=== PATIENT | female | born 1950 | race Caucasian/White ===

== ENCOUNTER → 2016-08-17 | Outpatient (CLI) | payer BC, OTHER ==
[~2016-08-17] VITALS: Ht 157.5 cm; Wt 81.6 kg
[~2016-08-17] MED LIST: ALPR0.25 PO; CALC600T7 PO; CELE-19 PO; CRAN250C2 PO; CRANCAP10 PO; ESTRA; ESTROBLEND PO; GLUCPOW24 PO; LIDOCAINE 2% INJ 100 MG/5 ML SDV (FOR ANES.) As Ordered ONE; MULTTAB24 PO; NS 1,000 ML IV ONE; OMEP40CA2 PO; ONE-TAB33 PO; POTA595T8 PO; PROPOFOL 200 MG/20 ML VIAL As Ordered ONE; TYLE167L PO; TYLE650T25 PO; VITA1CHW12 PO; [UNRECOGNIZED DRUG - OTHER] PO
--- NOTE | 2016-08-17 12:18 | ROOR ---
Patient Name: Sofia Hyde Procedure Date: 08/17/2016 12:08 PM Date of : 1950 Age: 65 Room: [facility] Gender: Female Note Status: Finalized Procedure: Upper Endoscopy + Biopsies Indications: Heartburn Providers: Gonzalo Hyde MD Referring MD: Jessica Sanches MD Requesting Provider: Medicines: Monitored Anesthesia Care Complications: No immediate complications. Procedure: Pre-Anesthesia Assessment: - The heart rate, respiratory rate, oxygen saturations, blood pressure, adequacy of pulmonary ventilation, and response to care were monitored throughout the procedure. The Endoscope was introduced through the mouth, and advanced to the second part of duodenum. The upper GI endoscopy was accomplished without difficulty. The patient tolerated the procedure well. Findings: The Z-line was regular and was found 30 cm from the incisors. Multiple biopsies were obtained with cold forceps for evaluation to rule out Myrick's Esophagus randomly at 30 cm from the incisors and at the gastroesophageal junction. A small hiatal hernia was present. No other significant abnormalities were identified in a careful examination of the stomach. The exam of the duodenum was otherwise normal. Impression: - Z-line regular, 30 cm from the incisors. - Small hiatal hernia. - Multiple biopsies were obtained at 30 cm from the incisors and at the gastroesophageal junction. Recommendation: - Discharge patient to home. - Follow an antireflux regimen. - Continue present medications. - Await pathology results. - Telephone GI clinic for pathology results in 1 week. - Check Portal Online for Path Results.([email or web address] - Return to referring physician. - The findings and recommendations were discussed with the patient's family. Gonzalo Hyde MD Gonzalo Hyde MD 08/17/2016 12:18:07 PM This report has been signed electronically. Number of Addenda: 0 Note Initiated On: 08/17/2016 12:08 PM Estimated Blood Loss: Estimated blood loss: none.
[2016-08-17 12:35] VITALS: BP 133/84
== END | disposition home or self-care (01) ==
LOC: M OPP 11:33
PROVIDERS: ATTEND Internal Medicine Gastroenterology
DX: K20.9 Esophagitis, unspecified (principal); K44.9 Diaphragmatic hernia without obstruction or gangrene; K62.5 Hemorrhage of anus and rectum; M19.90 Unspecified osteoarthritis, unspecified site; R06.83 Snoring; Z87.891 Personal history of nicotine dependence; Z96.9 Presence of functional implant, unspecified; Z79.899 Other long term (current) drug therapy; Z91.040 Latex allergy status; Z88.8 Allergy status to other drugs, medicaments and biological substances; Z88.2 Allergy status to sulfonamides; Z91.048 Other nonmedicinal substance allergy status

== ENCOUNTER → 2021-03-17 | Outpatient (CLI) | payer BC, OTHER ==
[~2021-03-17] MED LIST changes: +CALC-212 PO; -CALC600T7 PO; -CELE-19 PO; +CELE1CAP4 PO; -LIDOCAINE 2% INJ 100 MG/5 ML SDV (FOR ANES.) As Ordered ONE; -NS 1,000 ML IV ONE; -OMEP40CA2 PO; +OMEP40CA4 PO; -PROPOFOL 200 MG/20 ML VIAL As Ordered ONE
--- NOTE | 2021-03-17 11:57 | REP ---
INDICATION: SCREEING MAMMO. COMPARISON: Multiple the latest 11/21/2019 TECHNIQUE: Digital screening mammography was carried out bilaterally in the CC and MLO projections using both 2D and 3D modalities and compared to the prior exams. By history, the patient has no complaints of a palpable breast abnormality or other significant breast complaints. FINDINGS: The breasts are unchanged in size and shape. There are no josep soft tissue densities or spiculated masses. There is no internal architectural distortion. In the left breast upper outer quadrant there is a new grouping of calcifications. No other suspicious features are seen in either breast. The Volpara volumetric breast density pattern is b. IMPRESSION: BIRADS/ACR category 0 mammogram. There is a new grouping of calcifications in the left breast, as described above, for which diagnostic digital magnified spot compression views are recommended in the CC and true lateral projections. This patient's Tyrer-Cuzick lifetime breast cancer risk assessment score is 3.9%. This mammogram was interpreted with the aid of an FDA-approved computer-aided detection system. The patient states she had a clinical breast exam in over a year. The patient letter being requested is M0. RECOMMENDATION: As above <Electronically signed by Donnie Mccarthy > 03/17/21 [id number]
== END ==
LOC: M WHC 10:48
PROVIDERS: ATTEND Nurse Practitioner Family
DX: Z12.31 Encounter for screening mammogram for malignant neoplasm of breast (principal)

== ENCOUNTER → 2021-04-21 | Outpatient (CLI) | payer MEDICARE, BC, OTHER ==
[~2021-04-21] MED LIST changes: +ACET325C5 PO; +BENA25CA4 PO; +CETI10CA2 PO
[2021-04-21 11:50] VITALS: BP 114/66
== END ==
LOC: M WHCPRO 09:51
PROVIDERS: ATTEND Surgery
DX: N60.22 Fibroadenosis of left breast (principal)

== ENCOUNTER → 2021-10-18 | Outpatient (CLI) | payer MEDICARE, BC, OTHER | LOC: M WHC 12:38 | PROVIDERS: ATTEND Surgery | DX: R92.8 Other abnormal and inconclusive findings on diagnostic imaging of breast (principal) | CPT/HCPCS: 77065; G0279 ==

== ENCOUNTER → 2022-01-13 | Outpatient (CLI) | payer MEDICARE, BC, OTHER ==
[2022-01-13 15:25] LABS: ALBUMIN 3.9 GM/DL (3.2-5.2); ALT/SGPT 26 U/L (12-78); BILIRUBIN,TOTAL 0.4 MG/DL (0.2-1.0); BLOOD UREA NITROGEN 16 MG/DL (7-18); CARBON DIOXIDE LEVEL 30 MEQ/L (21-32); CHLORIDE LEVEL 105 MEQ/L (98-107); CHOLESTEROL LEVEL 228 MG/DL (<200); CHOLESTEROL RISK RATIO 3.507 (<5); CREATININE FOR GFR 0.78 MG/DL (0.55-1.30); GLOMERULAR FILTRATION RATE > 60.0 (>45); GLUCOSE, FASTING 103 MG/DL (70-100); HDL CHOLESTEROL 65 MG/DL (>40); LDL CHOLESTEROL 132 MG/DL (<100); NON-HDL-C 163 MG/DL; POTASSIUM SERUM 4.6 MEQ/L (3.5-5.1); SODIUM LEVEL 139 MEQ/L (136-145); TOTAL PROTEIN 7.8 GM/DL (6.4-8.2); TRIGLYCERIDES LEVEL 154 MG/DL (<150)
== END ==
LOC: M PLALAB 09:48
PROVIDERS: ATTEND Nurse Practitioner Family
DX: E78.2 Mixed hyperlipidemia (principal)

== ENCOUNTER → 2022-03-18 | Outpatient (CLI) | payer MEDICARE, BC, OTHER | LOC: M WHC 12:16 | PROVIDERS: ATTEND Nurse Practitioner Family | DX: Z12.31 Encounter for screening mammogram for malignant neoplasm of breast (principal); M81.0 Age-related osteoporosis without current pathological fracture ==

== ENCOUNTER 2022-07-23 02:15 | Observation (INO) | payer MEDICARE, BC, OTHER ==
[~2022-07-23] VITALS: Ht 160 cm; Wt 80.6 kg
[2022-07-23] MEDS ORDERED: KETOROLAC 60MG 2ML VIAL IM ONE (04:35)
[2022-07-23] MEDS ORDERED: diazePAM 10MG/2ML SYRINGE IV ONE (04:50)
[2022-07-23 05:20] LABS: BASO % 0.3 % (0.0-1.0); EOS % 0.3 % (0.0-3.0); HEMATOCRIT 40.6 % (36.0-47.0); LYMPH # 1.5 10^3/uL (1.5-5.0); LYMPH % 13.3 % (24.0-44.0); MEAN CORPUSCULAR HEMOGLOBIN 32.6 pg (27.0-33.0); MEAN CORPUSCULAR HGB CONC 34.5 g/dl (32.0-36.5); MEAN CORPUSCULAR VOLUME 94.4 fl (80.0-96.0); MONO # 0.5 10^3/uL (0.0-0.8); MONO % 4.5 % (2.0-8.0); NEUTROPHILS # 9.2 10^3/uL (1.5-8.5); NEUTROPHILS % 81.3 % (36.0-66.0); PLATELET COUNT, AUTOMATED 356 10^3/uL (150-450); WHITE BLOOD COUNT 11.3 10^3/uL (4.0-10.0)
[2022-07-23 05:44] LABS: ALBUMIN 3.8 G/DL (3.2-5.2); ALKALINE PHOSPHATASE 106 U/L (46-116); ALT/SGPT 23 U/L (7.0-40); AST/SGOT 27 U/L (<34); BILIRUBIN,TOTAL 0.8 MG/DL (0.3-1.2); BLOOD UREA NITROGEN 13 MG/DL (9-23); CALCIUM LEVEL 9.6 MG/DL (8.3-10.6); CARBON DIOXIDE LEVEL 24 MMOL/L (20-31); CHLORIDE LEVEL 104 MMOL/L (98-107); CREATININE FOR GFR 0.66 MG/DL (0.55-1.30); GLOMERULAR FILTRATION RATE > 60.0 (>45); GLUCOSE, FASTING 106 MG/DL (74-106); POTASSIUM SERUM 4.2 MMOL/L (3.5-5.1); SODIUM LEVEL 137 MMOL/L (136-145); TOTAL PROTEIN 6.8 G/DL (5.7-8.2)
[2022-07-23 05:51] LABS: RSV AMPLIFICATION NEGATIVE (NEGATIVE)
[2022-07-23] MEDS ORDERED: HOME MED LIST COMPLETE! XX SCH (08:20)
[2022-07-23] MEDS ORDERED: ACETAMINOPHEN TAB 650MG DOSE (2X325MG) PO PRN (09:05)
[2022-07-23] MEDS ORDERED: LORazepam 2 MG TAB PO PRN (09:15)
[2022-07-23] MEDS ORDERED: PERCOCET 5MG/325MG TAB PO PRN (09:15)
[2022-07-23] MEDS: FOLIC ACID 1MG TAB PO SCH (10:20)
[2022-07-23] MEDS: CYCLOBENZAPRINE 5MG TABLET PO SCH ×2 (10:20→17:12)
[2022-07-23] MEDS: MULTIVITAMINS/MINERALS THERAP 1 TAB PO SCH (10:20)
[2022-07-23] MEDS: THIAMINE 100 MG TAB PO SCH ×2 (10:21→20:44)
[2022-07-23] MEDS: PERCOCET 5MG/325MG TAB PO PRN (10:21)
[2022-07-23] MEDS: ENOXAPARIN 40MG/0.4ML SYRINGE (J1650 PER 10MG) SC SCH (10:21)
[2022-07-23] MEDS: OMEPRAZOLE 20MG CAP PO SCH (10:21)
[2022-07-23 15:15] VITALS: BP 116/59
[2022-07-23] MEDS ORDERED: MORPHINE 2 MG/ML 1ML VIAL IV ONE (18:50)
[2022-07-23 22:00] VITALS: BP 131/82
[2022-07-23 22:34] VITALS: BP 124/89
[2022-07-23 22:36] VITALS: BP 124/89
[2022-07-24] MEDS: CYCLOBENZAPRINE 5MG TABLET PO SCH ×3 (00:13→16:05)
[2022-07-24 06:00] VITALS: BP 109/57
[2022-07-24 06:04] VITALS: BP 109/57
[2022-07-24] MEDS: PERCOCET 5MG/325MG TAB PO PRN ×3 (06:15→22:08)
[2022-07-24] MEDS: THIAMINE 100 MG TAB PO SCH ×2 (08:20→21:30)
[2022-07-24] MEDS: MULTIVITAMINS/MINERALS THERAP 1 TAB PO SCH (08:20)
[2022-07-24] MEDS: OMEPRAZOLE 20MG CAP PO SCH (08:20)
[2022-07-24] MEDS: FOLIC ACID 1MG TAB PO SCH (08:20)
[2022-07-24] MEDS: ENOXAPARIN 40MG/0.4ML SYRINGE (J1650 PER 10MG) SC SCH (08:21)
[2022-07-24 14:00] VITALS: BP 131/64
[2022-07-24 22:00] VITALS: BP 112/62
[2022-07-25] MEDS: PERCOCET 5MG/325MG TAB PO PRN ×2 (02:10→09:41)
[2022-07-25 06:13] LABS: BASO % 0.4 % (0.0-1.0); EOS # 0.4 10^3/uL (0.0-0.5); EOS % 5.1 % (0.0-3.0); HEMATOCRIT 36.6 % (36.0-47.0); HEMOGLOBIN 12.1 g/dl (12.0-15.5); LYMPH # 1.9 10^3/uL (1.5-5.0); LYMPH % 26.4 % (24.0-44.0); MEAN CORPUSCULAR HEMOGLOBIN 32.5 pg (27.0-33.0); MEAN CORPUSCULAR HGB CONC 33.1 g/dl (32.0-36.5); MEAN CORPUSCULAR VOLUME 98.4 fl (80.0-96.0); MONO # 0.6 10^3/uL (0.0-0.8); MONO % 8.4 % (2.0-8.0); NEUTROPHILS # 4.3 10^3/uL (1.5-8.5); NEUTROPHILS % 59.4 % (36.0-66.0); PLATELET COUNT, AUTOMATED 296 10^3/uL (150-450); RED BLOOD COUNT 3.72 10^6/uL (4.00-5.40); WHITE BLOOD COUNT 7.2 10^3/uL (4.0-10.0)
[2022-07-25 06:33] LABS: BLOOD UREA NITROGEN 13 MG/DL (9-23); CALCIUM LEVEL 8.6 MG/DL (8.3-10.6); CARBON DIOXIDE LEVEL 28 MMOL/L (20-31); CHLORIDE LEVEL 106 MMOL/L (98-107); GLOMERULAR FILTRATION RATE > 60.0 (>45); GLUCOSE, FASTING 98 MG/DL (74-106); POTASSIUM SERUM 4.3 MMOL/L (3.5-5.1); SODIUM LEVEL 139 MMOL/L (136-145)
[2022-07-25] MEDS: CYCLOBENZAPRINE 5MG TABLET PO SCH ×3 (06:37→16:07)
[2022-07-25 06:52] VITALS: BP 117/59
[2022-07-25] MEDS ORDERED: MIRALAX *UNIT DOSE* 17GM PACKET PO SCH (09:00)
[2022-07-25] MEDS: MULTIVITAMINS/MINERALS THERAP 1 TAB PO SCH (09:40)
[2022-07-25] MEDS: OMEPRAZOLE 20MG CAP PO SCH (09:40)
[2022-07-25] MEDS: FOLIC ACID 1MG TAB PO SCH (09:40)
[2022-07-25] MEDS: THIAMINE 100 MG TAB PO SCH (09:40)
[2022-07-25] MEDS: ENOXAPARIN 40MG/0.4ML SYRINGE (J1650 PER 10MG) SC SCH (09:41)
[2022-07-25] MEDS ORDERED: BISACODYL 10MG SUPP PR ONE (13:00)
[2022-07-25] MEDS ORDERED: LACTULOSE 20GM/30ML SYRUP UDC PO ONE (13:15)
[2022-07-25] MEDS ORDERED: SENNA 8.6 MG TAB (SENOKOT) PO ONE (13:15)
[2022-07-25 14:00] VITALS: BP 135/85
== END 2022-07-25 16:25 ==
LOC: EDBD 02:15 → M ED 02:15 → M ED INP 02:16 → ENRESERV 13:18 → M MS5PR 16:20
PROVIDERS: ADMIT Internal Medicine; ATTEND Internal Medicine
DX: M25.551 Pain in right hip (principal); R10.30 Lower abdominal pain, unspecified; M62.838 Other muscle spasm; W01.0XXA Fall on same level from slipping, tripping and stumbling without subsequent striking against object, initial encounter; Y92.090 Kitchen in other non-institutional residence as the place of occurrence of the external cause; Y93.01 Activity, walking, marching and hiking; M19.90 Unspecified osteoarthritis, unspecified site; F10.20 Alcohol dependence, uncomplicated; Z96.643 Presence of artificial hip joint, bilateral; R26.2 Difficulty in walking, not elsewhere classified; K21.9 Gastro-esophageal reflux disease without esophagitis; Z79.899 Other long term (current) drug therapy; Z88.2 Allergy status to sulfonamides; Z88.8 Allergy status to other drugs, medicaments and biological substances; Z91.040 Latex allergy status; Z91.048 Other nonmedicinal substance allergy status; Z87.891 Personal history of nicotine dependence

== ENCOUNTER 2022-07-25 14:17 | Inpatient (IN) | payer MEDICARE, BC, OTHER ==
[~2022-07-25] VITALS: Ht 160 cm; Wt 78.7 kg
[2022-07-25] MEDS ORDERED: BISACODYL 10MG SUPP PR PRN (15:15)
[2022-07-25 16:30] VITALS: BP 110/64
[2022-07-25 20:00] VITALS: BP 118/66
[2022-07-25] MEDS: THIAMINE 100 MG TAB PO SCH (20:30)
[2022-07-25] MEDS: GABAPENTIN 100 MG CAP PO SCH (20:30)
[2022-07-25] MEDS: ACETAMINOPHEN 500 MG TAB PO SCH (20:31)
[2022-07-25] MEDS: oxyCODONE 5MG TAB PO PRN (20:32)
[2022-07-25] MEDS: SENNA 8.6 MG TAB (SENOKOT) PO SCH (20:32)
[2022-07-25] MEDS: DOCUSATE SODIUM 100MG CAPSULE PO SCH (20:33)
[2022-07-26] MEDS: CYCLOBENZAPRINE 5MG TABLET PO PRN ×3 (02:31→20:53)
[2022-07-26 05:42] LABS: BASO # 0.1 10^3/uL (0.0-0.2); BASO % 0.8 % (0.0-1.0); EOS # 0.3 10^3/uL (0.0-0.5); EOS % 5.2 % (0.0-3.0); HEMATOCRIT 35.5 % (36.0-47.0); HEMOGLOBIN 11.9 g/dl (12.0-15.5); LYMPH # 1.8 10^3/uL (1.5-5.0); LYMPH % 28.6 % (24.0-44.0); MEAN CORPUSCULAR HEMOGLOBIN 32.8 pg (27.0-33.0); MEAN CORPUSCULAR HGB CONC 33.5 g/dl (32.0-36.5); MEAN CORPUSCULAR VOLUME 97.8 fl (80.0-96.0); MONO # 0.5 10^3/uL (0.0-0.8); MONO % 8.3 % (2.0-8.0); NEUTROPHILS # 3.6 10^3/uL (1.5-8.5); NEUTROPHILS % 56.6 % (36.0-66.0); PLATELET COUNT, AUTOMATED 274 10^3/uL (150-450); RED BLOOD COUNT 3.63 10^6/uL (4.00-5.40); WHITE BLOOD COUNT 6.4 10^3/uL (4.0-10.0)
[2022-07-26 06:00] VITALS: BP 118/56
[2022-07-26 06:08] LABS: ALBUMIN 2.9 G/DL (3.2-5.2); ALKALINE PHOSPHATASE 88 U/L (46-116); ALT/SGPT 27 U/L (7.0-40); AST/SGOT 30 U/L (<34); BILIRUBIN,TOTAL 0.4 MG/DL (0.3-1.2); BLOOD UREA NITROGEN 15 MG/DL (9-23); CALCIUM LEVEL 8.6 MG/DL (8.3-10.6); CARBON DIOXIDE LEVEL 26 MMOL/L (20-31); CHLORIDE LEVEL 107 MMOL/L (98-107); CREATININE FOR GFR 0.66 MG/DL (0.55-1.30); GLOMERULAR FILTRATION RATE > 60.0 (>45); GLUCOSE, FASTING 94 MG/DL (74-106); POTASSIUM SERUM 4.3 MMOL/L (3.5-5.1); SODIUM LEVEL 140 MMOL/L (136-145); TOTAL PROTEIN 5.5 G/DL (5.7-8.2)
[2022-07-26] MEDS: THIAMINE 100 MG TAB PO SCH ×2 (08:47→20:51)
[2022-07-26] MEDS: PANTOPRAZOLE 40MG TAB (PROTONIX) PO SCH (08:47)
[2022-07-26] MEDS: FOLIC ACID 1MG TAB PO SCH (08:47)
[2022-07-26] MEDS: GABAPENTIN 100 MG CAP PO SCH ×3 (08:47→20:52)
[2022-07-26] MEDS: MULTIVITAMINS/MINERALS THERAP 1 TAB PO SCH (08:47)
[2022-07-26] MEDS: MIRALAX *UNIT DOSE* 17GM PACKET PO SCH (08:49)
[2022-07-26] MEDS: ACETAMINOPHEN 500 MG TAB PO SCH ×3 (08:49→20:54)
[2022-07-26] MEDS: DOCUSATE SODIUM 100MG CAPSULE PO SCH ×2 (08:49→20:51)
[2022-07-26] MEDS: ENOXAPARIN 40MG/0.4ML SYRINGE (J1650 PER 10MG) SC SCH (08:49)
[2022-07-26] MEDS: oxyCODONE 5MG TAB PO PRN ×2 (12:43→20:53)
[2022-07-26 14:00] VITALS: BP 115/60
[2022-07-26 20:00] VITALS: BP 116/58
[2022-07-26] MEDS: SENNA 8.6 MG TAB (SENOKOT) PO SCH (20:51)
[2022-07-27 06:00] VITALS: BP 126/61
[2022-07-27] MEDS: GABAPENTIN 100 MG CAP PO SCH ×3 (08:16→21:33)
[2022-07-27] MEDS: FOLIC ACID 1MG TAB PO SCH (08:16)
[2022-07-27] MEDS: PANTOPRAZOLE 40MG TAB (PROTONIX) PO SCH (08:16)
[2022-07-27] MEDS: MULTIVITAMINS/MINERALS THERAP 1 TAB PO SCH (08:16)
[2022-07-27] MEDS: THIAMINE 100 MG TAB PO SCH ×2 (08:17→21:32)
[2022-07-27] MEDS: ACETAMINOPHEN 500 MG TAB PO SCH ×3 (08:17→21:34)
[2022-07-27] MEDS: ENOXAPARIN 40MG/0.4ML SYRINGE (J1650 PER 10MG) SC SCH (08:18)
[2022-07-27] MEDS: CYCLOBENZAPRINE 5MG TABLET PO PRN ×2 (08:21→16:30)
[2022-07-27] MEDS: oxyCODONE 5MG TAB PO PRN ×3 (08:22→21:34)
[2022-07-27] MEDS: DOCUSATE SODIUM 100MG CAPSULE PO SCH ×2 (09:00→21:32)
[2022-07-27] MEDS: MIRALAX *UNIT DOSE* 17GM PACKET PO SCH (09:00)
[2022-07-27 11:00] LABS: BASO # 0.1 10^3/uL (0.0-0.2); BASO % 0.6 % (0.0-1.0); EOS # 0.3 10^3/uL (0.0-0.5); EOS % 3.7 % (0.0-3.0); HEMATOCRIT 39.9 % (36.0-47.0); HEMOGLOBIN 13.2 g/dl (12.0-15.5); LYMPH # 1.7 10^3/uL (1.5-5.0); LYMPH % 20.1 % (24.0-44.0); MEAN CORPUSCULAR HEMOGLOBIN 32.5 pg (27.0-33.0); MEAN CORPUSCULAR HGB CONC 33.1 g/dl (32.0-36.5); MEAN CORPUSCULAR VOLUME 98.3 fl (80.0-96.0); MONO # 0.5 10^3/uL (0.0-0.8); MONO % 5.8 % (2.0-8.0); NEUTROPHILS # 5.9 10^3/uL (1.5-8.5); NEUTROPHILS % 69.4 % (36.0-66.0); PLATELET COUNT, AUTOMATED 352 10^3/uL (150-450); RED BLOOD COUNT 4.06 10^6/uL (4.00-5.40); WHITE BLOOD COUNT 8.5 10^3/uL (4.0-10.0)
[2022-07-27] MEDS: CETIRIZINE (ZyrTEC) 10 MG TAB PO SCH (11:00)
[2022-07-27 11:36] LABS: BLOOD UREA NITROGEN 14 MG/DL (9-23); CALCIUM LEVEL 8.9 MG/DL (8.3-10.6); CARBON DIOXIDE LEVEL 29 MMOL/L (20-31); CHLORIDE LEVEL 105 MMOL/L (98-107); CREATININE FOR GFR 0.64 MG/DL (0.55-1.30); GLOMERULAR FILTRATION RATE > 60.0 (>45); GLUCOSE, FASTING 107 MG/DL (74-106); POTASSIUM SERUM 4.4 MMOL/L (3.5-5.1); SODIUM LEVEL 139 MMOL/L (136-145)
[2022-07-27] MEDS: ANUSOL HC CREAM 30GM TOP SCH ×2 (12:08→21:34)
[2022-07-27 14:04] VITALS: BP 124/76
[2022-07-27 20:00] VITALS: BP 137/73
[2022-07-27] MEDS: SENNA 8.6 MG TAB (SENOKOT) PO SCH (21:32)
[2022-07-28] MEDS: oxyCODONE 5MG TAB PO PRN ×4 (03:21→21:53)
[2022-07-28 06:02] VITALS: BP 114/54
[2022-07-28] MEDS: FOLIC ACID 1MG TAB PO SCH (08:04)
[2022-07-28] MEDS: DOCUSATE SODIUM 100MG CAPSULE PO SCH ×2 (08:05→21:51)
[2022-07-28] MEDS: PANTOPRAZOLE 40MG TAB (PROTONIX) PO SCH (08:05)
[2022-07-28] MEDS: MULTIVITAMINS/MINERALS THERAP 1 TAB PO SCH (08:05)
[2022-07-28] MEDS: ACETAMINOPHEN 500 MG TAB PO SCH ×3 (08:05→21:51)
[2022-07-28] MEDS: THIAMINE 100 MG TAB PO SCH ×2 (08:06→21:53)
[2022-07-28] MEDS: GABAPENTIN 100 MG CAP PO SCH ×3 (08:06→21:52)
[2022-07-28] MEDS: MIRALAX *UNIT DOSE* 17GM PACKET PO SCH (08:06)
[2022-07-28] MEDS: CETIRIZINE (ZyrTEC) 10 MG TAB PO SCH (08:06)
[2022-07-28] MEDS: ENOXAPARIN 40MG/0.4ML SYRINGE (J1650 PER 10MG) SC SCH (08:07)
[2022-07-28] MEDS: ANUSOL HC CREAM 30GM TOP SCH ×2 (08:07→21:54)
[2022-07-28 14:00] VITALS: BP 116/61
[2022-07-28] MEDS: CYCLOBENZAPRINE 5MG TABLET PO PRN ×2 (16:02→21:53)
[2022-07-28 20:00] VITALS: BP 116/57
[2022-07-28] MEDS: SENNA 8.6 MG TAB (SENOKOT) PO SCH (21:52)
[2022-07-29 06:28] VITALS: BP 109/58
[2022-07-29] MEDS: THIAMINE 100 MG TAB PO SCH ×2 (08:11→21:54)
[2022-07-29] MEDS: DOCUSATE SODIUM 100MG CAPSULE PO SCH ×2 (08:11→21:53)
[2022-07-29] MEDS: PANTOPRAZOLE 40MG TAB (PROTONIX) PO SCH (08:11)
[2022-07-29] MEDS: MULTIVITAMINS/MINERALS THERAP 1 TAB PO SCH (08:11)
[2022-07-29] MEDS: FOLIC ACID 1MG TAB PO SCH (08:11)
[2022-07-29] MEDS: ENOXAPARIN 40MG/0.4ML SYRINGE (J1650 PER 10MG) SC SCH (08:12)
[2022-07-29] MEDS: MIRALAX *UNIT DOSE* 17GM PACKET PO SCH (08:12)
[2022-07-29] MEDS: CETIRIZINE (ZyrTEC) 10 MG TAB PO SCH (08:12)
[2022-07-29] MEDS: GABAPENTIN 100 MG CAP PO SCH ×3 (08:12→21:53)
[2022-07-29] MEDS: ANUSOL HC CREAM 30GM TOP SCH ×2 (08:13→21:54)
[2022-07-29] MEDS: ACETAMINOPHEN 500 MG TAB PO SCH ×3 (08:15→21:53)
[2022-07-29 10:40] LABS: BASO % 0.5 % (0.0-1.0); EOS # 0.2 10^3/uL (0.0-0.5); EOS % 3.9 % (0.0-3.0); HEMATOCRIT 37.7 % (36.0-47.0); HEMOGLOBIN 12.2 g/dl (12.0-15.5); LYMPH # 1.4 10^3/uL (1.5-5.0); LYMPH % 23.3 % (24.0-44.0); MEAN CORPUSCULAR HEMOGLOBIN 31.8 pg (27.0-33.0); MEAN CORPUSCULAR HGB CONC 32.4 g/dl (32.0-36.5); MEAN CORPUSCULAR VOLUME 98.2 fl (80.0-96.0); MONO # 0.5 10^3/uL (0.0-0.8); NEUTROPHILS # 3.9 10^3/uL (1.5-8.5); PLATELET COUNT, AUTOMATED 316 10^3/uL (150-450); RED BLOOD COUNT 3.84 10^6/uL (4.00-5.40); WHITE BLOOD COUNT 6.1 10^3/uL (4.0-10.0)
[2022-07-29 11:17] LABS: BLOOD UREA NITROGEN 13 MG/DL (9-23); CALCIUM LEVEL 8.8 MG/DL (8.3-10.6); CARBON DIOXIDE LEVEL 29 MMOL/L (20-31); CHLORIDE LEVEL 103 MMOL/L (98-107); CREATININE FOR GFR 0.66 MG/DL (0.55-1.30); GLOMERULAR FILTRATION RATE > 60.0 (>45); GLUCOSE, FASTING 85 MG/DL (74-106); POTASSIUM SERUM 4.4 MMOL/L (3.5-5.1); SODIUM LEVEL 138 MMOL/L (136-145)
[2022-07-29] MEDS: CYCLOBENZAPRINE 5MG TABLET PO PRN (13:54)
[2022-07-29] MEDS: oxyCODONE 5MG TAB PO PRN (13:54)
[2022-07-29 14:00] VITALS: BP 114/60
[2022-07-29 20:00] VITALS: BP 116/57
[2022-07-29] MEDS: SENNA 8.6 MG TAB (SENOKOT) PO SCH (21:53)
[2022-07-30] MEDS: oxyCODONE 5MG TAB PO PRN ×4 (03:23→21:56)
[2022-07-30 06:00] VITALS: BP 118/57
[2022-07-30] MEDS: FOLIC ACID 1MG TAB PO SCH (08:35)
[2022-07-30] MEDS: MIRALAX *UNIT DOSE* 17GM PACKET PO SCH (08:35)
[2022-07-30] MEDS: DOCUSATE SODIUM 100MG CAPSULE PO SCH ×2 (08:35→21:55)
[2022-07-30] MEDS: ENOXAPARIN 40MG/0.4ML SYRINGE (J1650 PER 10MG) SC SCH (08:36)
[2022-07-30] MEDS: CETIRIZINE (ZyrTEC) 10 MG TAB PO SCH (08:36)
[2022-07-30] MEDS: GABAPENTIN 100 MG CAP PO SCH ×3 (08:36→21:55)
[2022-07-30] MEDS: ACETAMINOPHEN 500 MG TAB PO SCH ×3 (08:36→21:57)
[2022-07-30] MEDS: MULTIVITAMINS/MINERALS THERAP 1 TAB PO SCH (08:36)
[2022-07-30] MEDS: PANTOPRAZOLE 40MG TAB (PROTONIX) PO SCH (08:36)
[2022-07-30] MEDS: THIAMINE 100 MG TAB PO SCH ×2 (08:36→21:55)
[2022-07-30] MEDS: ANUSOL HC CREAM 30GM TOP SCH ×2 (08:37→21:57)
[2022-07-30] MEDS: CYCLOBENZAPRINE 5MG TABLET PO PRN ×3 (10:22→21:56)
[2022-07-30 14:00] VITALS: BP 142/63
[2022-07-30 19:54] VITALS: BP 131/60
[2022-07-30] MEDS: SENNA 8.6 MG TAB (SENOKOT) PO SCH (21:55)
[2022-07-31] MEDS: CYCLOBENZAPRINE 5MG TABLET PO PRN ×2 (04:15→10:20)
[2022-07-31] MEDS: oxyCODONE 5MG TAB PO PRN ×4 (04:16→23:29)
[2022-07-31 06:00] VITALS: BP 101/51
[2022-07-31] MEDS: DOCUSATE SODIUM 100MG CAPSULE PO SCH ×2 (09:24→20:56)
[2022-07-31] MEDS: FOLIC ACID 1MG TAB PO SCH (09:24)
[2022-07-31] MEDS: PANTOPRAZOLE 40MG TAB (PROTONIX) PO SCH (09:25)
[2022-07-31] MEDS: THIAMINE 100 MG TAB PO SCH ×2 (09:25→20:56)
[2022-07-31] MEDS: ACETAMINOPHEN 500 MG TAB PO SCH ×3 (09:25→20:56)
[2022-07-31] MEDS: MIRALAX *UNIT DOSE* 17GM PACKET PO SCH (09:25)
[2022-07-31] MEDS: GABAPENTIN 100 MG CAP PO SCH ×3 (09:25→20:56)
[2022-07-31] MEDS: MULTIVITAMINS/MINERALS THERAP 1 TAB PO SCH (09:25)
[2022-07-31] MEDS: ENOXAPARIN 40MG/0.4ML SYRINGE (J1650 PER 10MG) SC SCH (09:26)
[2022-07-31] MEDS: ANUSOL HC CREAM 30GM TOP SCH ×2 (09:26→20:58)
[2022-07-31] MEDS: CETIRIZINE (ZyrTEC) 10 MG TAB PO SCH (09:26)
[2022-07-31 12:55] LABS: ALBUMIN 3.5 G/DL (3.2-5.2); BLOOD UREA NITROGEN 16 MG/DL (9-23); CALCIUM LEVEL 9.2 MG/DL (8.3-10.6); CARBON DIOXIDE LEVEL 28 MMOL/L (20-31); CHLORIDE LEVEL 103 MMOL/L (98-107); CREATININE FOR GFR 0.67 MG/DL (0.55-1.30); GLOMERULAR FILTRATION RATE > 60.0 (>45); GLUCOSE, FASTING 90 MG/DL (74-106); PHOSPHORUS LEVEL 4.5 MG/DL (2.4-5.1); POTASSIUM SERUM 4.2 MMOL/L (3.5-5.1); SODIUM LEVEL 136 MMOL/L (136-145)
[2022-07-31 14:00] VITALS: BP 156/68
[2022-07-31 20:00] VITALS: BP 110/67
[2022-07-31] MEDS: SENNA 8.6 MG TAB (SENOKOT) PO SCH (20:56)
[2022-08-01] MEDS: CYCLOBENZAPRINE 5MG TABLET PO PRN ×2 (00:57→10:24)
[2022-08-01 05:38] VITALS: BP 114/58
[2022-08-01] MEDS: oxyCODONE 5MG TAB PO PRN ×3 (07:09→22:17)
[2022-08-01] MEDS: FOLIC ACID 1MG TAB PO SCH (08:25)
[2022-08-01] MEDS: CETIRIZINE (ZyrTEC) 10 MG TAB PO SCH (08:25)
[2022-08-01] MEDS: PANTOPRAZOLE 40MG TAB (PROTONIX) PO SCH (08:25)
[2022-08-01] MEDS: THIAMINE 100 MG TAB PO SCH ×2 (08:25→20:40)
[2022-08-01] MEDS: GABAPENTIN 100 MG CAP PO SCH ×3 (08:25→20:41)
[2022-08-01] MEDS: MULTIVITAMINS/MINERALS THERAP 1 TAB PO SCH (08:25)
[2022-08-01] MEDS: ENOXAPARIN 40MG/0.4ML SYRINGE (J1650 PER 10MG) SC SCH (08:26)
[2022-08-01] MEDS: MIRALAX *UNIT DOSE* 17GM PACKET PO SCH (08:26)
[2022-08-01] MEDS: DOCUSATE SODIUM 100MG CAPSULE PO SCH ×2 (08:26→20:40)
[2022-08-01] MEDS: ACETAMINOPHEN 500 MG TAB PO SCH ×3 (08:26→20:41)
[2022-08-01] MEDS: ANUSOL HC CREAM 30GM TOP SCH ×2 (08:27→20:41)
[2022-08-01 10:36] LABS: BASO # 0.1 10^3/uL (0.0-0.2); BASO % 0.7 % (0.0-1.0); EOS # 0.3 10^3/uL (0.0-0.5); HEMATOCRIT 39.9 % (36.0-47.0); HEMOGLOBIN 13.1 g/dl (12.0-15.5); LYMPH # 2.1 10^3/uL (1.5-5.0); LYMPH % 29.6 % (24.0-44.0); MEAN CORPUSCULAR HEMOGLOBIN 32.3 pg (27.0-33.0); MEAN CORPUSCULAR HGB CONC 32.8 g/dl (32.0-36.5); MEAN CORPUSCULAR VOLUME 98.5 fl (80.0-96.0); MONO # 0.5 10^3/uL (0.0-0.8); MONO % 7.5 % (2.0-8.0); NEUTROPHILS % 58.1 % (36.0-66.0); PLATELET COUNT, AUTOMATED 386 10^3/uL (150-450); RED BLOOD COUNT 4.05 10^6/uL (4.00-5.40); WHITE BLOOD COUNT 6.9 10^3/uL (4.0-10.0)
[2022-08-01 11:09] LABS: BLOOD UREA NITROGEN 16 MG/DL (9-23); CALCIUM LEVEL 9.4 MG/DL (8.3-10.6); CARBON DIOXIDE LEVEL 26 MMOL/L (20-31); CHLORIDE LEVEL 105 MMOL/L (98-107); CREATININE FOR GFR 0.77 MG/DL (0.55-1.30); GLOMERULAR FILTRATION RATE > 60.0 (>45); GLUCOSE, FASTING 105 MG/DL (74-106); POTASSIUM SERUM 4.6 MMOL/L (3.5-5.1); SODIUM LEVEL 137 MMOL/L (136-145)
[2022-08-01 14:00] VITALS: BP 114/62
[2022-08-01] MEDS: CEFDINIR 300 MG CAP (OMNICEF) PO SCH ×2 (14:43→20:40)
[2022-08-01 19:14] VITALS: BP 132/65
[2022-08-01] MEDS: IPRATROPIUM HFA INHALER 12.9 GRAMS (ATROVENT HFA) INH SCH (20:13)
[2022-08-01] MEDS: SENNA 8.6 MG TAB (SENOKOT) PO SCH (20:40)
[2022-08-01] MEDS ORDERED: NYSTATIN 100,000 UNITS/GM TOPICAL PWD 15GM TOP PRN (20:50)
[2022-08-02] MEDS: CYCLOBENZAPRINE 5MG TABLET PO PRN ×2 (01:01→11:36)
[2022-08-02] MEDS: oxyCODONE 5MG TAB PO PRN ×2 (04:04→10:53)
[2022-08-02] MEDS: IPRATROPIUM HFA INHALER 12.9 GRAMS (ATROVENT HFA) INH SCH (05:53)
[2022-08-02 05:59] VITALS: BP 114/66
[2022-08-02] MEDS: THIAMINE 100 MG TAB PO SCH (08:33)
[2022-08-02] MEDS: CETIRIZINE (ZyrTEC) 10 MG TAB PO SCH (08:33)
[2022-08-02] MEDS: PANTOPRAZOLE 40MG TAB (PROTONIX) PO SCH (08:33)
[2022-08-02] MEDS: DOCUSATE SODIUM 100MG CAPSULE PO SCH (08:33)
[2022-08-02] MEDS: GABAPENTIN 100 MG CAP PO SCH (08:33)
[2022-08-02] MEDS: CEFDINIR 300 MG CAP (OMNICEF) PO SCH (08:33)
[2022-08-02] MEDS: MULTIVITAMINS/MINERALS THERAP 1 TAB PO SCH (08:33)
[2022-08-02] MEDS: FOLIC ACID 1MG TAB PO SCH (08:33)
[2022-08-02] MEDS: MIRALAX *UNIT DOSE* 17GM PACKET PO SCH (08:34)
[2022-08-02] MEDS: ACETAMINOPHEN 500 MG TAB PO SCH (08:34)
[2022-08-02] MEDS: ANUSOL HC CREAM 30GM TOP SCH (08:34)
[2022-08-02] MEDS: ENOXAPARIN 40MG/0.4ML SYRINGE (J1650 PER 10MG) SC SCH (08:34)
[2022-08-02] MEDS ORDERED: CYCL5TAB PO (10:57)
[2022-08-02] MEDS ORDERED: OMEP40CA4 PO (10:57)
[2022-08-02] MEDS ORDERED: IPRAINH INH (10:57)
[2022-08-02] MEDS ORDERED: CEFD300CAP PO (10:57)
[2022-08-02] MEDS ORDERED: GABA-1171 PO (10:57)
[2022-08-02] MEDS ORDERED: THIA100TA PO (10:57)
[2022-08-02] MEDS ORDERED: MEDR4PAK PO (11:37)
[2022-08-02] MEDS ORDERED: OXYC-517 PO (11:37)
== END 2022-08-02 12:05 | disposition home or self-care (01) | DRG 559 ==
LOC: M PM&R 16:30
PROVIDERS: ADMIT Physical Medicine & Rehabilitation; ATTEND Physical Medicine & Rehabilitation
DX: S32.10XD Unspecified fracture of sacrum, subsequent encounter for fracture with routine healing (principal); J18.9 Pneumonia, unspecified organism; M62.838 Other muscle spasm; M19.90 Unspecified osteoarthritis, unspecified site; F10.20 Alcohol dependence, uncomplicated; M25.551 Pain in right hip; R26.2 Difficulty in walking, not elsewhere classified; K21.9 Gastro-esophageal reflux disease without esophagitis; K59.00 Constipation, unspecified; L24.89 Irritant contact dermatitis due to other agents; Z79.899 Other long term (current) drug therapy; Z88.2 Allergy status to sulfonamides; Z88.8 Allergy status to other drugs, medicaments and biological substances; Z91.040 Latex allergy status; Z91.048 Other nonmedicinal substance allergy status; Z87.891 Personal history of nicotine dependence; Z96.643 Presence of artificial hip joint, bilateral; Z74.09 Other reduced mobility; Z74.1 Need for assistance with personal care

== ENCOUNTER → 2022-08-16 | Outpatient (CLI) | payer MEDICARE, BC, OTHER ==
[~2022-08-16] MED LIST changes: +CEFD300CAP PO; +CYCL5TAB PO; +GABA-1171 PO; +IPRAINH INH; +ISOVUE-370 76% 100ML VIAL As Ordered ONE; +MEDR4PAK PO; +OXYC-517 PO; +THIA100TA PO
== END ==
LOC: M RAD 13:46
PROVIDERS: ATTEND Nurse Practitioner Family
DX: R91.1 Solitary pulmonary nodule (principal)
CPT/HCPCS: 71260; Q9967

== ENCOUNTER → 2023-01-23 | Outpatient (CLI) | payer MEDICARE, BC, OTHER ==
[~2023-01-23] MED LIST changes: -ISOVUE-370 76% 100ML VIAL As Ordered ONE
[2023-01-23 13:34] LABS: ALBUMIN 3.8 G/DL (3.2-5.2); ALKALINE PHOSPHATASE 109 U/L (46-116); ALT/SGPT 24 U/L (7.0-40); AST/SGOT 22 U/L (<34); BILIRUBIN,TOTAL 0.5 MG/DL (0.3-1.2); BLOOD UREA NITROGEN 13 MG/DL (9-23); CARBON DIOXIDE LEVEL 30 MMOL/L (20-31); CHLORIDE LEVEL 106 MMOL/L (98-107); CHOLESTEROL LEVEL 239 MG/DL (<200); CHOLESTEROL RISK RATIO 3.79 (<5); CREATININE FOR GFR 0.69 MG/DL (0.55-1.30); GLOMERULAR FILTRATION RATE > 60.0 (>39); GLUCOSE, FASTING 88 MG/DL (74-106); LDL CHOLESTEROL 135.2 MG/DL (<100); POTASSIUM SERUM 5.3 MMOL/L (3.5-5.1); SODIUM LEVEL 141 MMOL/L (136-145); TOTAL PROTEIN 7.2 G/DL (5.7-8.2); TRIGLYCERIDES LEVEL 204 MG/DL (<150)
== END ==
LOC: M PLALAB 09:26
PROVIDERS: ATTEND Nurse Practitioner Family
DX: E78.2 Mixed hyperlipidemia (principal)

== ENCOUNTER → 2023-03-20 | Outpatient (CLI) | payer MEDICARE, BC, OTHER | LOC: M WHC 13:35 | PROVIDERS: ATTEND Nurse Practitioner Family | DX: Z12.31 Encounter for screening mammogram for malignant neoplasm of breast (principal) ==

== ENCOUNTER → 2024-01-25 | Outpatient (CLI) | payer MEDICARE, BC ==
[~2024-01-25] MED LIST changes: -CYCL5TAB PO; +CYCL5TAB4 PO
[2024-01-25 10:56] LABS: ALBUMIN 3.9 G/DL (3.2-5.2); ALKALINE PHOSPHATASE 121 U/L (35-104); ALT/SGPT 24 U/L (7.0-40); AST/SGOT 17 U/L (<34); BILIRUBIN,TOTAL 0.4 MG/DL (0.3-1.2); BLOOD UREA NITROGEN 15 MG/DL (9-23); CALCIUM LEVEL 10.5 MG/DL (8.3-10.6); CARBON DIOXIDE LEVEL 29 MMOL/L (20-31); CHLORIDE LEVEL 105 MMOL/L (98-107); CHOLESTEROL LEVEL 244 MG/DL (<200); CHOLESTEROL RISK RATIO 3.64 (<5); CREATININE FOR GFR 0.66 MG/DL (0.55-1.30); GLOMERULAR FILTRATION RATE > 60.0 (>39); GLUCOSE, FASTING 98 MG/DL (74-106); HDL CHOLESTEROL 66.9 MG/DL (>40); LDL CHOLESTEROL 141.3 MG/DL (<100); NON-HDL-C 177.1 MG/DL; POTASSIUM SERUM 5.5 MMOL/L (3.5-5.1); SODIUM LEVEL 141 MMOL/L (136-145); TOTAL PROTEIN 7.5 G/DL (5.7-8.2); TRIGLYCERIDES LEVEL 179 MG/DL (<150)
== END ==
LOC: M PLALAB 09:35
PROVIDERS: ATTEND Nurse Practitioner Family
DX: E78.2 Mixed hyperlipidemia (principal)

== ENCOUNTER → 2024-03-21 | Outpatient (CLI) | payer MEDICARE, BC | LOC: M WHC 12:59 | PROVIDERS: ATTEND Nurse Practitioner Family | DX: Z12.31 Encounter for screening mammogram for malignant neoplasm of breast (principal); Z13.820 Encounter for screening for osteoporosis; M81.0 Age-related osteoporosis without current pathological fracture ==

== ENCOUNTER → 2024-03-21 | Outpatient (CLI) | payer MEDICARE, BC ==
[2024-03-21 16:22] LABS: BLOOD UREA NITROGEN 18 MG/DL (9-23); CARBON DIOXIDE LEVEL 28 MMOL/L (20-31); CHLORIDE LEVEL 103 MMOL/L (98-107); CREATININE FOR GFR 0.74 MG/DL (0.55-1.30); GLOMERULAR FILTRATION RATE > 60.0 (>39); GLUCOSE, FASTING 91 MG/DL (74-106); POTASSIUM SERUM 4.8 MMOL/L (3.5-5.1); SODIUM LEVEL 141 MMOL/L (136-145)
== END ==
LOC: M PLALAB 13:01
PROVIDERS: ATTEND Nurse Practitioner Family
DX: E87.5 Hyperkalemia (principal)

== ENCOUNTER 2024-12-25 10:29 | Day surgery (SDC) | payer MEDICARE, BC ==
[~2024-12-25] VITALS: Ht 160 cm; Wt 80.6 kg
[~2024-12-25 10:29] MED LIST changes: +ACET-683 PO; +ALEN70TA82 PO; +CVS500CA5 PO; +MAG100TA PO; +VITA-243 PO; +VITA500079 PO
[2024-12-25] MEDS ORDERED: LIDOCAINE 2% 100 MG/5 ML SDV (FOR ANES.) As Ordered ONE (10:37)
[2024-12-25 12:41] VITALS: TEMP 98.9
[2024-12-25 12:53] VITALS: BP 108/59; O2SAT 99
== END 2024-12-25 13:10 | disposition home or self-care (01) ==
LOC: M OPP 10:29
PROVIDERS: ATTEND Internal Medicine Gastroenterology
DX: Z12.11 Encounter for screening for malignant neoplasm of colon (principal); K64.0 First degree hemorrhoids; K57.30 Diverticulosis of large intestine without perforation or abscess without bleeding; Z88.2 Allergy status to sulfonamides; Z88.8 Allergy status to other drugs, medicaments and biological substances; Z91.040 Latex allergy status; Z91.048 Other nonmedicinal substance allergy status

== ENCOUNTER → 2025-01-07 | Outpatient (CLI) | payer MEDICARE, BC ==
[2025-01-07 11:47] LABS: ALT/SGPT 18.0 U/L (7.0-40); AST/SGOT 23.0 U/L (<34); CALCIUM LEVEL 10.5 MG/DL (8.3-10.6); CARBON DIOXIDE LEVEL 29.0 MMOL/L (20-31); CHLORIDE LEVEL 105.0 MMOL/L (98-107); CHOLESTEROL LEVEL 239.0 MG/DL (<200); CHOLESTEROL RISK RATIO 3.48 (<5); CREATININE FOR GFR 0.73 MG/DL (0.55-1.30); GLOMERULAR FILTRATION RATE 87.3 (>39); LDL CHOLESTEROL 134.1 MG/DL (<100); NON-HDL-C 170.5 MG/DL; POTASSIUM SERUM 5.6 MMOL/L (3.5-5.1); SODIUM LEVEL 144.0 MMOL/L (136-145); TRIGLYCERIDES LEVEL 182.0 MG/DL (<150)
== END ==
LOC: M PLALAB 08:59
PROVIDERS: ATTEND Nurse Practitioner Family
DX: E78.2 Mixed hyperlipidemia (principal)